=== PATIENT | male | born 1985 | race Caucasian/White ===

== ENCOUNTER 2016-09-12 19:49 | Emergency (ER) | payer BC ==
[2016-09-12] MEDS ORDERED: ACETAMINOPHEN 325 MG TABLET PO ONE (20:01)
--- NOTE | 2016-09-12 20:01 | ER Document Report ---
ED Medical Screen (RME) - General Chief Complaint: Testicular Pain Stated Complaint: LEG AND GROIN PAIN Time Seen by Provider: 09/12/16 19:52 Mode of Arrival: Wheelchair Information source: Patient TRAVEL OUTSIDE OF THE [place] IN LAST 30 DAYS: No - HPI Patient complains to provider of: left groin pain Past Medical History Renal/ Medical History: Denies: Hx Peritoneal Dialysis Physical Exam - Vital signs Vitals: Temp Pulse Resp BP Pulse Ox 100.7 F H 108 H 16 137/75 H 100 09/12/16 19:56 09/12/16 19:56 09/12/16 19:56 09/12/16 19:56 09/12/16 19:56 Course - Vital Signs Vital signs: Temp Pulse Resp BP Pulse Ox 100.7 F H 108 H 16 137/75 H 100 09/12/16 19:56 09/12/16 19:56 09/12/16 19:56 09/12/16 19:56 09/12/16 19:56
[2016-09-12] MEDS ORDERED: MORPHINE SULFATE IR 15 MG TABLET PO ONE (20:22)
--- NOTE | 2016-09-12 20:22 | ER Document Report ---
ED General - General Chief Complaint: Testicular Pain Stated Complaint: LEG AND GROIN PAIN Time Seen by Provider: 09/12/16 19:52 Mode of Arrival: Wheelchair Notes: Patient is a 31-year-old male who presents with progressively worsening pain of the left lower extremity for the past 3-4 hours. States that as a severe, constant, throbbing pain to the left posterior thigh and popliteal region. Nothing improves or worsens the pain. Denies any history of similar symptoms in the past. He was seen in urgent care and referred to the emergency department. Although triage note does note testicular pain, patient denies any tenderness to the testicle whatsoever stating the pain is in his leg. Denies a history of DVT or other thromboembolic events. TRAVEL OUTSIDE OF THE [place] IN LAST 30 DAYS: No - Related Data Allergies/Adverse Reactions: No Known Allergies Allergy (Unverified 09/12/16 20:23) Past Medical History - General Information source: Patient - Social History Smoking Status: Never Smoker Frequency of alcohol use: None Drug Abuse: None Lives with: Family Family History: Reviewed & Not Pertinent Patient has suicidal ideation: No Patient has homicidal ideation: No Renal/ Medical History: Denies: Hx Peritoneal Dialysis Review of Systems - Review of Systems Notes: Constitutional: Negative for fever. HENT: Negative for sore throat. Eyes: Negative for visual changes. Cardiovascular: Negative for chest pain. Respiratory: Negative for shortness of breath. Gastrointestinal: Negative for abdominal pain, vomiting or diarrhea. Genitourinary: Negative for dysuria. Musculoskeletal: Positive for left leg pain Skin: Positive for rash. Neurological: Negative for headaches, weakness or numbness. 10 point ROS negative except as marked above and in HPI. Physical Exam - Vital signs Vitals: Temp Pulse Resp BP Pulse Ox 100.7 F H 108 H 16 137/75 H 100 09/12/16 19:56 09/12/16 19:56 09/12/16 19:56 09/12/16 19:56 09/12/16 19:56 Interpretation: Tachycardic, Febrile Notes: PHYSICAL EXAMINATION: GENERAL: Appears uncomfortable but in no acute distress HEAD: Atraumatic, normocephalic. EYES: Pupils equal round and reactive to light, extraocular movements intact, sclera anicteric, conjunctiva are normal. ENT: nares patent, oropharynx clear without exudates. Moist mucous membranes. NECK: Normal range of motion, supple without lymphadenopathy LUNGS: Breath sounds clear to auscultation bilaterally and equal. No wheezes rales or rhonchi. HEART: Regular rate and rhythm without murmurs ABDOMEN: Soft, nontender, normoactive bowel sounds. No guarding, no rebound. No masses appreciated. : Positive cremasteric reflex bilaterally. No testicular or epididymal tenderness. EXTREMITIES: Pain on palpation of the distal posterior quadriceps and hamstrings as well as popliteal fossa. NEUROLOGICAL: No focal neurological deficits. Moves all extremities spontaneously and on command. PSYCH: Normal mood, normal affect. SKIN: Warm, Dry, normal turgor, there is a slight erythema to the lateral aspect of the left calf, thigh and hamstring region Course - Re-evaluation Re-evalutation: 09/12/16 20:21 Patient presents with progressively worsening pain of the left lower extremity to the distal thigh, hamstrings and behind the popliteal fossa worrisome for possible acute DVT. Testicular exam is unremarkable without evidence of torsion , epididymitis or orchitis. Will obtain a venous Doppler study, basic laboratories, provide analgesia and reassess 09/12/16 23:06 DVT study is negative for acute DVT. Laboratories do demonstrate a prominent leukocytosis with neutrophilic predominance and patient did have a mild fever at time of arrival at 100.7. Repeat physical examination shows a mild cellulitis of the right lower extremity from the level of the calf, extending to the mid thigh. Patient does have some inguinal lymphadenopathy. This could explain patient's pain as well as his vitals and lab findings. He will be started on cephalexin at this time. I do not appreciate any crepitus or any exam findings to suggest a necrotizing fasciitis. I believe he is safe for discharge at this time with close outpatient follow-up and have expressed the need for follow-up with his outpatient provider within the next 24 hours. - Vital Signs Vital signs: Temp Pulse Resp BP Pulse Ox 98.9 F 98 18 106/58 L 99 09/12/16 23:53 09/12/16 23:53 09/12/16 23:53 09/12/16 23:53 09/12/16 23:53 - Laboratory Result Diagrams: 09/12/16 20:50 09/12/16 20:50 Laboratory results interpreted by me: 09/12/16 20:50 WBC 22.1 H Seg Neuts % (Manual) 88 H Band Neutrophils % 2 L Lymphocytes % (Manual) 4 L Abs Neuts (Manual) 19.9 H Abs Basophils (Manual) 0.4 H - Diagnostic Test Radiology reviewed: Reports reviewed Discharge - Discharge Clinical Impression: Left leg pain, Cellulitis of left leg Condition: Good Disposition: HOME, SELF-CARE Additional Instructions: The rash/pain is likely due to infection of your skin. You need to take the antibiotics as prescribed. Do not stop even if the rash goes away until you have completed all the antibiotics. You should return if you develop fevers with temperature greater than 101, persistent vomiting, worsening pain, or have any other symptoms that are concerning to you. Follow-up with your doctor tomorrow. For your pain: Take ibuprofen 600 mg and acetaminophen 1000 mg every 6 hours together as needed for pain. If this does not control your pain you may take 15 mg of oral morphine every 4 hours as needed. Please be very careful about using the oral morphine and only use this for severe pain. Prescriptions: Morphine Sulfate [Morphine Ir 15 mg Tablet] 15 mg PO Q4HP PRN #12 tablet PRN Reason: Cephalexin Monohydrate [Keflex 500 mg Capsule] 500 mg PO QID #28 capsule Referrals: GRADY DEVINE MD [Primary Care Provider] - Follow up as needed
[2016-09-12 21:13] LABS: HEMATOCRIT 45.5 % (37.9-51.0); HEMOGLOBIN 14.6 g/dL (13.5-17.0); HGB HCT DIFFERENCE -1.7; MEAN CORPUSCULAR HEMOGLOBIN 28.1 pg (27.0-33.4); MEAN CORPUSCULAR HGB CONC 32.2 g/dL (32.0-36.0); MEAN CORPUSCULAR VOLUME 88 fl (80-97); RED CELL DISTRIBUTION WIDTH 13.3 % (11.5-14.0); WHITE BLOOD COUNT 22.1 10^3/uL (4.0-10.5)
[2016-09-12 21:27] LABS: ANION GAP 13 (5-19); BLOOD UREA NITROGEN 12 mg/dL (7-20); CALCIUM 9.1 mg/dL (8.4-10.2); CARBON DIOXIDE 25 mmol/L (22-30); CHLORIDE 101 mmol/L (98-107); CREATININE RESULT 0.93 mg/dL (0.52-1.25); GLUCOSE 97 mg/dL (75-110); SODIUM 139.2 mmol/L (137-145)
[2016-09-12 21:36] LABS: BAND NEUTROPHILS % (MANUAL) 2 % (3-5); BASOPHILS % (MANUAL) 2 % (0-2); EOSINOPHILS % (MANUAL) 0 % (0-6); LYMPHOCYTES % (MANUAL) 4 % (13-45); RBC MORPHOLOGY COMMENT NORMO-CYTIC/CHROMIC; TOTAL CELLS COUNTED 100
[2016-09-12] MEDS ORDERED: CEPHALEXIN 500 MG CAPSULE PO ONE (23:08)
--- NOTE | 2016-09-12 23:22 | RADIOLOGY REPORT (SQ) ---
EXAM DESCRIPTION: VENOUS UNILATERAL LOWER COMPLETED DATE/TIME: 09/12/2016 11:00 pm REASON FOR STUDY: eval dvt lle COMPARISON: 01/11/2012. TECHNIQUE: Dynamic and static garber scale and color images acquired of the left leg venous system. Se lected spectral images acquired with additional compression and augmentation maneuvers. The contralat eral common femoral vein and saphenofemoral junction were also imaged. Images stored on PACS. LIMITATIONS: None. FINDINGS: COMMON FEMORAL: Normal phasicity, compression and augmentation. No visualized echogenic ma terial on garber scale. No defects on color images. FEMORAL: Normal compression and augmentation. No visualized echogenic material on garber scale. No defe cts on color images. POPLITEAL: Normal compression, augmentation. No visualized echogenic material on garber scale. No defec ts on color images. CALF VESSELS: Normal compression, augmentation. No visualized echogenic material on garber scale. No de fects on color images. GSV and SSV: Normal compression, augmentation. No visualized echogenic material on garber scale. No def ects on color images. ANY DEEP VENOUS INSUFFICIENCY: No. ANY EVIDENCE OF POPLITEAL CYST: No. OTHER: No other significant finding. CONTRALATERAL COMMON FEMORAL VEIN AND SAPHENOFEMORAL JUNCTION: Normal phasicity, compression and augmentation. No visualized echogenic material on garber scale. No de fects on color images. IMPRESSION: NO EVIDENCE DVT OR SVT IN THE LEFT LEG. TECHNICAL DOCUMENTATION: JOB ID: [id number] [employer]- All Rights Reserved
[2016-09-12 23:55] VITALS: BP 106/58
== END 2016-09-12 23:56 | disposition home or self-care (01) ==
LOC: ER 19:49
DX: L03.116 Cellulitis of left lower limb (principal); R50.9 Fever, unspecified; R00.0 Tachycardia, unspecified; D72.828 Other elevated white blood cell count; R59.0 Localized enlarged lymph nodes; M79.1 Myalgia; M79.662 Pain in left lower leg
CPT/HCPCS: 36415; 80048; 85025; 93971; 99283